=== PATIENT | male | born 2000 | race Caucasian/White ===

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

== ENCOUNTER 2024-05-07 18:47 | Inpatient (IN) | payer OTHER, SELFPAY ==
[2024-05-07 18:56] VITALS: BP 168/134; PULSE 112; RESP 18; TEMP 36.8; O2SAT 99; BMI 31.8
--- NOTE | 2024-05-07 18:58 | ECG_ITS ---
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 Measurements Intervals [place] Rate: 105 P: 78 MD: 146 QRS: 74 QRSD: 99 T: 74 QT: 334 QTc: 443 Interpretive Statements SINUS TACHYCARDIA NONSPECIFIC T-WAVE ABNORMALITY ABNORMAL RHYTHM ECG No previous ECG available for comparison Electronically Signed On 05-08-2024 00:11:49 CDT by Jen Marie M.D. [email or web address]
--- NOTE | 2024-05-07 19:05 | ED.C_ITS ---
HPI - Psych 2 General: Chief Complaint: Psychiatric Symptoms Stated Complaint: MHE Time Seen by Provider: 05/07/24 18:50 Source: patient and police Mode of arrival: ambulatory Limitations: no limitations History of Present Illness: 24-year-old male states he has been havi ng increased depression over the last week states he is having issues in his relationship and states that his family called because he is worried that he may have erratic behavior please states they said he has been having erratic behavior and make threats to harm other people and is concerned he may harm himself as well. Associated symptoms: Reports depression Related Data Home Medications Medication Instructions Recorded Confirmed No Known Home Medications 05/15/20 05/15/20 Allergies Allergy/AdvReac Type Severity Reaction Status Date / Time No Known Allergies Allergy Verified 05/07/24 19:02 Review of Systems 2 Const: Denies: fever(s), chills, body aches or change in appetite ENMT: Denies: throat pain or dental pain Card: Denies: chest pain Resp: Denies: dyspnea GI: Denies: abdominal pain, nausea, vomiting or diarrhea Musc: Denies: neck pain or back pain Skin/Breast: Denies: rash Neuro: Denies: headache(s) Psych: Reports: depression Physical Exam 2 Const: COMMON NORMALS: no acute distress, patient oriented x3 and healthy appearing HENMT: COMMON NORMALS: normocephalic and atraumatic HEAD & SCALP: n ormocephalic and atraumatic Eye: COMMON NORMALS: conjunctivae normal CONJUNCTIVA: Yes conjunctivae normal Neck/C-Spine: COMMON NORMALS: full ROM and supple Chest: COMMONS NORMALS: normal inspection of the chest Resp: COMMON NORMALS: normal respiratory effort Cardio: COMMON NORMALS: regular rate RATE: regular rate Extremity: COMMON NORMALS: normal to inspection and full ROM Neuro: COMMON NORMALS: patient oriented x3, moves all extremities and no focal motor deficits Psych: COMMON NORMALS: mental status grossly normal, Normal thought process present and cooperative MOOD & AFFECT: Yes depressed mood THOUGHT PROCESS: Normal thought process present Skin: COMMON NORMALS: no rashes or lesions noted and no wounds GENERAL SKIN EXAM: no rashes or lesions noted Course 2 Vital Signs: Vital signs: Vital Signs Temperature 98.3 F 05/07/24 18:56 Pulse Rate 112 H 05/07/24 18:56 Respiratory Rate 18 05/07/24 18:56 Blood Pressure 168/134 05/07/24 18:56 Pulse Oximetry 99 05/07/24 18:56 Oxygen Delivery Me thod Room Air 05/07/24 18:56 MDM - Psych Medical Decision Making Patient presents here with depression he is also had some homicidal ideations with some psychosis he is placed on a 96-hour hold medically cleared I spoke to psychiatrist and will admit. Medical Records I reviewed the patient's medical records. Lab Data I reviewed the patient's lab results. 05/07/24 19:26 05/07/24 19:26 Laboratory Results WBC 11.71 10^3/uL (3.29-11.43) H 05/07/24 19: RBC 5.98 10^6/uL (3.85-5.65) H 05/07/24 19: Hgb 15.90 g/dL (11.27-16.99) 05/07/24 19: Hct 48.0 % (37-53) 05/07/24 19: MCV 80.3 fl (82-101) L 05/07/24 19: MCH 26.6 pg (27-33) L 05/07/24 19: MCHC 33.1 g/dL (30-55) 05/07/24 19: RDW 11.9 % (12.1-15.1) L 05/07/24 19: Plt Count 300 10^3/cmm (157-399) 05/07/24 19: MPV 10.8 fL (7.4-10.4) H 05/07/24 19: Neut % (Auto) 75.5 % 05/07/24 19: Lymph % (Auto) 17.3 % 05/07/24 19: [place] % (Auto) 6.4 % 05/07/24 19: Eos % (Auto) 0.2 % 05/07/24 19: Baso % (Auto) 0.3 % 05/07/24 19: Neut # (Auto) 8.85 10^3/uL (1.8-7.7) H 05/07/24 19: Lymph # (Auto) 2.0 10^3/uL (0.8-4.8) 10/27/24 19:26 [place] # (Auto) 0.8 10^3/uL (0.2-0.9) 05/07/24 19:26 Eos # (Auto) 0.0 10^3/uL (0.0-0.8) 05/07/24 19:26 Baso # (Auto) 0.0 10^3/uL (0.0-0.1) 05/07/24 19:26 Nucleated RBC % (auto) 0 % 05/07/24 19:26 Nucleated RBCs # 0.0 /100WBC 05/07/24 19:26 Sodium 136 mmol/L (136-145) 05/07/24 19:26 Potassium 3.4 mmol/L (3.5-5.1) L 05/07/24 19:26 Chloride 100 mmol/L (98-107) 05/07/24 19:26 Carbon Dioxide 23 mmol/L (22-29) 05/07/24 19:26 Anion Gap 16.4 (5-19) 05/07/24 19:26 BUN 12 mg/dL (6-20) 05/07/24 19:26 Creatinine 0.8 mg/dL (0.7-1.2) 05/07/24 19:26 GFR Calculation 119.8 mL/min (90-130) 05/07/24 19:26 Glucose 102 mg/dL (65-115) 05/07/24 19:26 Calculated Osmolality 282 mOsm/kg (285-295) L 05/07/24 19:26 Calcium 9.1 mg/dL (8.5-10.5) 05/07/24 19:26 Total Bilirubin 0.6 mg/dL (0.15-1.2) 05/07/24 19:26 AST 23 U/L (0-40) 05/07/24 19:26 ALT 28 U/L (0-41) 05/07/24 19:26 Alkaline Phosphatase 38 U/L (40-130) L 05/07/24 19:26 Total Protein 7.0 g/dL (6.6-8.7) 05/07/24 19:26 Albumin 4.7 g/dL (3.5-5.2) 05/07/24 19:26 Globulin 2.3 g/dL (1.3-4.6) 05/07/24 19:26 Urine Color Yellow (Yellow) 05/07/24 19:21 Urine Appearance Clear (CLEAR) 05/07/24 19: Urine pH 6.0 (5-7) 05/07/24 19:21 Ur Specific [place] 1.030 (1.005-1.030) 05/07/24 19:21 Urine Protein 1+ (Negative) A 05/07/24 19: Urine Glucose (UA) Negative (Normal) 05/07/24 19:21 Urine Ketones 2+ (Negative) H 05/07/24 19:21 Urine Blood Negative (Negative) 05/07/24 19:21 Urine Nitrate Negative (Negative) 05/07/24 19: Urine Bilirubin Negative (Negative) 05/07/24 19: Urine Urobilinogen 1.0 mg/dL (Negative) 05/07/24 19:21 Ur Leukocyte Esterase Trace (Negative) A 05/07/24 19: Urine RBC 0-4 /hpf (0-2) H 05/07/24 19:21 Urine WBC 10-15 /hpf (0-5) H 05/07/24 19:21 Ur Squamous Epith Cells 5-10 /hpf (0-5) H 05/07/24 19:21 Amorphous Sediment Not Reportable 05/07/24 19:21 Urine Bacteria Trace /hpf (NONE) 05/07/24 19:21 Urine Mucus 3+ /hpf 05/07/24 19:21 Salicylates < 0.3 mg/dL (3-10) L 05/07/24 19:26 Urine Opiates Screen Negative ng/mL (Negative) 05/07/24 19:21 Acetaminophen < 5.0 ug/mL (10-30) L 05/07/24 19:26 Ur Barbiturates Screen Negative ng/mL (Negative) 05/07/24 19:21 Ur Phencyclidine Scrn Negative ng/mL (Negative) 05/07/24 19:21 Ur Amphetamines Screen Negative ng/mL (Negative) 05/07/24 19:21 U Benzodiazepines Scrn Negative ng/mL (Negative) 05/07/24 19:21 Urine Cocaine Screen Negative ng/mL (Negative) 05/07/24 19:21 U Marijuana (THC) Screen Positive ng/mL (Negative) H 05/07/24 19:21 Ethyl Alcohol < 10 mg/dL (0-10) 05/07/24 19:26 Coronavirus (PCR) Negative (Negative) 05/07/24 19:21 Influenza A (PCR) Negative (Negative) 05/07/24 19:21 Influenza Type B (PCR) Negative (Negative) 05/07/24 19:21 RSV (PCR) Negative (Negative) 05/07/24 19:21 No radiology studies performed this visit Discharge Plan Discharge Patient Disposition: Admitted As Inpatient Clinical Impression: Depression, Acute psychosis, Homicidal ideation Condition: Stable Prescriptions: No Action No Known Home Medications Coding Level of Care Code ED Fuel Verification Technician for Nikolai Stuart
[2024-05-07 19:32] LABS: Bilirubin Urine Negative (Negative); Blood Urine Negative (Negative); Glucose Urine UA Negative (Normal); Ketones Urine 2+ (Negative); Leukocyte Esterase Urine Trace (Negative); Nitrate Urine Negative (Negative); Protein Urine 1+ (Negative); Urine Appearance Clear (CLEAR); Urine Color Yellow (Yellow)
[2024-05-07 19:32] LABS: Basophils % 0.3 %; Eosinophils % 0.2 %; Lymphocytes % 17.3 %; Mean Corpuscular HGB Conc 33.1 g/dL (30-55); Mean Corpuscular Hemoglobin 26.6 pg (27-33); Mean Corpuscular Volume 80.3 fl (82-101); Mean Platelet Volume 10.8 fL (7.4-10.4); Monocytes # 0.8 10^3/uL (0.2-0.9); Monocytes % 6.4 %; Neutrophils # 8.85 10^3/uL (1.8-7.7); Neutrophils % 75.5 %; Nucleated Red Blood Cells % 0 %; Platelet Count 300 10^3/cmm (157-399); Red Blood Count 5.98 10^6/uL (3.85-5.65); Red Cell Distribution Width 11.9 % (12.1-15.1); White Blood Count 11.71 10^3/uL (3.29-11.43)
[2024-05-07 19:41] LABS: Amphetamines Screen Urine Negative (Negative); Barbiturates Screen Urine Negative (Negative); Benzodiazepines Screen Urine Negative (Negative); Cocaine Screen Urine Negative (Negative); Opiate Screen Urine Negative (Negative); PCP Screen Urine Negative (Negative); THC Screen Urine Positive (Negative)
[2024-05-07 19:43] LABS: Add Urine Culture? No; Add Urine Microscopic? YES; Bacteria Urine TRACE /hpf; Mucus Urine 3+ /hpf; RBC Urine 0-4 /hpf (0-2)
[2024-05-07 19:52] LABS: Acetaminophen < 5.0 ug/mL (10-30); Alanine Aminotransferase 28 U/L (0-41); Albumin Level 4.7 g/dL (3.5-5.2); Alcohol Level < 10 mg/dL (0-10); Alkaline Phosphatase 38 U/L (40-130); Anion Gap 16.4 (5-19); Aspartate Amino Transferase 23 U/L (0-40); Blood Urea Nitrogen 12 mg/dL (6-20); Calcium 9.1 mg/dL (8.5-10.5); Carbon Dioxide 23 mmol/L (22-29); Chloride 100 mmol/L (98-107); Globulin 2.3 g/dL (1.3-4.6); Glomerular Filtration Rate 119.8 mL/min (90-130); Glucose 102 mg/dL (65-115); Osmolality Calculated 282 mOsm/kg (285-295); Potassium 3.4 mmol/L (3.5-5.1); Salicylate < 0.3 mg/dL (3-10); Sodium 136 mmol/L (136-145); Total Bilirubin 0.6 mg/dL (0.15-1.2)
--- NOTE | 2024-05-07 19:54 | PC.NURSE ---
PER DR. SEALS, CANCEL CLINDAMYCIN ORDER. WRONG PATIENT.
[2024-05-07 20:09] LABS: Covid PCR NEGATIVE (Negative); Influenza A NEGATIVE (Negative); Influenza B NEGATIVE (Negative); Respiratory Syncytial Virus Ce NEGATIVE (Negative)
--- NOTE | 2024-05-07 20:53 | PC.NURSE ---
96 HH Pt served with copy of 96 HH by this RN and security. Pt A&Ox3, pt denies having any questions at this time.
[2024-05-07 21:07] VITALS: BP 166/118
--- NOTE | 2024-05-07 21:45 | PC.NURSE ---
Pt offered ordered meds for BP and anxiety. Pt refuses at this time. Pt sitting on side of bed, shaking leg, but otherwise cooperative. Family at bedside.
[2024-05-07] MEDS: metoprolol tartrate 25 mg Tablet PO (23:48)
[2024-05-07] MEDS: LORazepam 1 mg Tablet PO (23:49)
--- NOTE | 2024-05-08 05:09 | PC.NURSE ---
Rounded on pt. Pt resting quietly. Resp even/unlabored. Skin w/p/d
[2024-05-08 06:23] VITALS: BP 109/58; PULSE 72; O2SAT 98
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
[2024-05-08 14:00] VITALS: BP 110/70; PULSE 90; RESP 18; TEMP 36.3; O2SAT 96
[2024-05-08] MEDS: escitalopram 10 mg Tablet PO (16:45)
[2024-05-08] MEDS: ARIPiprazole 10 mg Tablet 5 MG PO (16:45)
[2024-05-08 20:19] VITALS: BP 126/61; PULSE 66; RESP 15; TEMP 36.8; O2SAT 98
[2024-05-09 06:00] VITALS: BP 115/64; PULSE 90; RESP 16; O2SAT 97
[2024-05-09] MEDS: escitalopram 10 mg Tablet PO (09:18)
[2024-05-09] MEDS: ARIPiprazole 10 mg Tablet 5 MG PO (09:19)
[2024-05-09] MEDS: nicotine 2 mg Gum BUCCAL ×2 (09:19→20:35)
[2024-05-09 14:00] VITALS: BP 137/74; PULSE 87; RESP 18; TEMP 36.9; O2SAT 98
--- NOTE | 2024-05-09 15:30 | PC.NURSE ---
THIS PT MOTHER, WHO IS ON HIS HIPPA LIST, SPOKE WITH THIS NURSE. PT MOTHER STATED THAT SHE IS CONCERNED FOR PT BECAUSE HE IS STILL PARANOID. PT MOTHER STATES THAT HE ENDORSED TO HER DURING THIS VISITATION THAT PEOPLE ARE TRYING TO KILL HIM AND THAT THEY HAD A GROUP CHAT TO TALK ABOUT HIM. PT MOTHER ENDORSES THAT NONE OF THIS IS TRUE AND THAT SHE IS CONCERNED BECAUSE HE IS MANIPULATIVE AND IS TRYING TO BE GOOD TO BE ABLE TO GET OUT OF HERE. PT MOTHER BECAME TEARFUL AND STATED PLEASE HELP HIM GET BETTER. THIS NURSE EDUCATED PT MOTHER ON THE PROCESS AND THAT WE WOULD NOT LET PT OUT UNLESS HE IS NO LONGER DEEMED A THREAT TO HIMSELF OR OTHERS.
--- NOTE | 2024-05-09 15:50 | P.NPUPN_ITS ---
Subjective NPU 2 Subjective: 24-year-old male with a history of unspe cified psychosis admitted with paranoia and some homicidal ideation suicidal ideation.The patient had tolerated the patient had tolerated the Abilify without side effects. He had continued to report that he remained concerned that people were trying to harm his grandparents and stated that he had felt certain that they were trying to sneak over into their place of residence. He had reported that he had missed his family and acknowledged that he was extremely protective of his grandparents. He had reported that he had suspicions that something bad was happening. Patient had been compliant on the milieu and was able to attend groups. He had also acknowledged having continued depression and reported having problems with concentration. He reported no sleep disturbance last night. Mental Status Exam 2 MSE Comments: Patient is a tall white male who had an intense gaze but was pleasant and cooperative on interview. His gait appeared within normal limits. There was no evidence of any abnormal involuntary motor movements, tics, or tremors appreciated. His speech was monotone in quality and normal in rate and volume. His mood was described as depressed. His affect appeared blunted. His thought process was linear logical and goal-directed. His thought content showed some evidence of paranoia and some ideas of reference. There were some delusions of persecution. He had minimized any homicidal or suicidal thoughts. He did not appear to be responding to internal stimuli. He was alert and oriented to person place time and situation. His recent and remote memory were grossly intact. His insight was poor. His judgment was poor. His impulse control appeared limited at this time. Vitals/I&O/Wt Last Vital Signs Temp 98.5 F 05/09/24 14:00 Pulse 87 05/09/24 14:00 Resp 18 05/09/24 14:00 BP 137/74 05/09/24 14:00 Pulse Ox 98 05/09/24 14:00 O2 Del Method Room Air 05/09/24 06:00 Weight last 48 hrs Weight 115.666 kg Data NPU 05/07/24 19:26 05/07/24 19:26 A&P Assessment and plan (1) MDD (major depressive disorder), recurrent, severe, with psychosis: (2) Depression: (3) Unspecified psychosis: Plan 24-year-old male currently on medications to target depression and anxiety admitted with allegedly homicidal ideation and increased paranoia. The patient does appear to be psychotic this time and was willing to receive help on an inpatient unit. He does appear to have genetic loading for bipolar disorder and has endorsed some manic symptoms in the past. #1.? Engage patient in individual milieu and group therapy. #2?? Recommend sober living treatment at the highest level of care to which the patient is willing to commit #3??? Hold Strattera, continue lexapro 10mg daily and increase abilfy to 10mg daily. #4?? TO-15 minute checks? #5?? Will attempt to gather collateral information Involuntary Hold Information 2 96 Hour Hold: 96 Hour Involuntary Admission: Yes 96 Hour Hold Ending Date: 05/12/24 96 Hour Hold Ending Time: 00:01 Other Hold: Hold End Date: 05/11/24 Attestations NPU 2 Medical Necessity Statement*: Inpatient hospitalization is medically necessary and deemed to ?be ?the clinically appropriate intervention ?at this time.? We will monitor/initiate medications and make changes as indicated.?? The patient?s likely length of stay is 7-10 days. Coding Level of Care Code Acute Code for g Fwd Diagnoses MDD (major depressive disorder), recurrent, severe, with psychosis F33.3 Depression F32.A Unspecified psychosis F29
[2024-05-09 19:45] VITALS: BP 166/91; PULSE 95; RESP 15; TEMP 36.6; O2SAT 99
[2024-05-09] MEDS: hyDROXYzine 25 mg Capsule 50 MG PO (20:35)
[2024-05-09] MEDS: trazodone 50 mg Tablet PO (20:35)
[2024-05-10 06:00] VITALS: BP 117/68; PULSE 84; RESP 16; TEMP 36.6; O2SAT 99
[2024-05-10] MEDS: ARIPiprazole 10 mg Tablet PO (10:45)
[2024-05-10] MEDS: nicotine 2 mg Gum BUCCAL ×2 (13:12→21:12)
[2024-05-10 14:00] VITALS: BP 151/96; PULSE 75; RESP 16; TEMP 36.7; O2SAT 97
--- NOTE | 2024-05-10 18:26 | P.NPUPN_ITS ---
Subjective NPU 2 Subjective: 24-year-old male with a history of unspe cified psychosis admitted with paranoia and some homicidal ideation suicidal ideation. The patient had reported that he felt less paranoid. He had minimized any depression. He had stated that he was missing being at home. The patient had been able to attend groups but continued to appear somewhat isolative. He had reported that he continued to have some worries about something happening to his grandparents but stated that he was less preoccupied with those thoughts. He had continued to report having been extremely stressed by his previous marriages he had stated that the woman had caused him great financial stress. Mental Status Exam 2 MSE Comments: Patient is a tall white male who had an intense gaze but was pleasant and cooperative on interview. His gait appeared within normal limits. There was no evidence of any abnormal involuntary motor movements, tics, or tremors appreciated. His speech was monotone in quality and normal in rate and volume. His mood was described as a little better. His affect remained blunted. His thought process was linear, logical, and goal-directed. His thought content showed continued evidence of paranoia and some no ideas of reference today. He had minimized any homicidal or suicidal thoughts. He did not appear to be responding to internal stimuli. He was alert and oriented to person, place, time, and situation. His recent and remote memory were grossly intact. His insight was improving. His judgment was poor. His impulse control appeared limited at this time. Vitals/I&O/Wt Last Vital Signs Temp 97.8 F 05/10/24 06:00 Pulse 84 05/10/24 06:00 Resp 16 05/10/24 06:00 BP 117/68 05/10/24 06:00 Pulse Ox 99 05/10/24 06:00 O2 Del Method Room Air 05/10/24 06:00 Data NPU 05/07/24 19:26 05/07/24 19:26 A&P Assessment and plan (1) MDD (major depressive disorder), recurrent, severe, with psychosis: (2) Depression: (3) Unspecified psychosis: Plan 24-year-old male currently on medications to target depression and anxiety admitted with allegedly homicidal ideation and increased paranoia. The patient does appear to be psychotic this time and was willing to receive help on an inpatient unit. He does appear to have genetic loading for bipolar disorder and has endorsed some manic symptoms in the past. #1.? Engage patient in individual milieu and group therapy. #2?? Recommend sober living treatment at the highest level of care to which the patient is willing to commit #3??? , increase lexapro 15mg daily and increase abilfy to 15mg daily. #4?? TO-15 minute checks? #5?? Will attempt to gather collateral information Involuntary Hold Information 2 96 Hour Hold: 96 Hour Involuntary Admission: Yes 96 Hour Hold Ending Date: 05/12/24 96 Hour Hold Ending Time: 00:01 Other Hold: Hold End Date: 05/11/24 Attestations NPU 2 Medical Necessity Statement*: Inpatient hospitalization is medically necessary and deemed to ?be ?the clinically appropriate intervention ?at this time.? We will monitor/initiate medications and make changes as indicated.?? The patient?s likely length of stay is 7-10 days. Coding Level of Care Code Acute Code for [facility] Fwd Diagnoses MDD (major depressive disorder), recurrent, severe, with psychosis F33.3 Depression F32.A Unspecified psychosis F29
[2024-05-10 20:11] VITALS: BP 134/78; PULSE 84; RESP 15; TEMP 36.5; O2SAT 99
[2024-05-10] MEDS: escitalopram 10 mg Tablet 15 MG PO (21:12)
[2024-05-10] MEDS: trazodone 50 mg Tablet PO (21:13)
[2024-05-10] MEDS: hyDROXYzine 25 mg Capsule 50 MG PO (21:13)
[2024-05-11 06:00] VITALS: BP 121/74; PULSE 81; RESP 18; TEMP 36.6; O2SAT 97
[2024-05-11] MEDS: nicotine 2 mg Gum BUCCAL ×2 (07:41→10:48)
[2024-05-11] MEDS: ARIPiprazole 10 mg Tablet PO (07:41)
[2024-05-11 14:00] VITALS: BP 152/99; PULSE 87; RESP 16; TEMP 36.6; O2SAT 99
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
[2024-05-11 16:44] VITALS: BP 121/74; PULSE 84; RESP 18; TEMP 36.6; O2SAT 97
== END 2024-05-11 16:57 | disposition home or self-care (01) | DRG 885 ==
LOC: ER 20:49 → ER IP 05-08 07:11 → NP 05-08 10:00
PROVIDERS: Admitting Provider Psychiatry & Neurology Psychiatry; Emergency Provider Emergency Medicine; PCP Nurse Practitioner Family; Visit Provider Psychiatry & Neurology Psychiatry
DX: F33.3 Major depressive disorder, recurrent, severe with psychotic symptoms (principal); R45.851 Suicidal ideations; F17.290 Nicotine dependence, other tobacco product, uncomplicated; R45.850 Homicidal ideations; Z81.8 Family history of other mental and behavioral disorders
CPT/HCPCS: 0241U; 36415; 80053; 80306; 80307; 81001; 85025; 93005; 97150; 97165; 99285

== ENCOUNTER 2024-05-13 04:28 | Emergency (ER) | payer OTHER, SELFPAY ==
[2024-05-13 04:31] VITALS: BP 167/104; PULSE 96; RESP 16; TEMP 36.7; O2SAT 100; BMI 31.2
--- NOTE | 2024-05-13 05:05 | ECG_ITS ---
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 Measurements Intervals [place] Rate: 87 P: 55 DE: 168 QRS: 33 QRSD: 93 T: 58 QT: 350 QTc: 423 Interpretive Statements SINUS RHYTHM NONSPECIFIC T-WAVE ABNORMALITY Compared to ECG 05/07/2024 19:46:13 Sinus tachycardia no longer present T-wave abnormality still present Electronically Signed On 05-13-2024 13:39:04 CDT by Temo Lucero M.D. [email or web address]
[2024-05-13 05:14] LABS: Basophils % 0.4 %; Eosinophils % 0.2 %; Hematocrit 48.5 % (37-53); Lymphocytes # 1.8 10^3/uL (0.8-4.8); Lymphocytes % 17.7 %; Mean Corpuscular Hemoglobin 26.5 pg (27-33); Mean Corpuscular Volume 80.4 fl (82-101); Mean Platelet Volume 11.1 fL (7.4-10.4); Monocytes # 0.7 10^3/uL (0.2-0.9); Neutrophils # 7.58 10^3/uL (1.8-7.7); Neutrophils % 74.2 %; Nucleated Red Blood Cells % 0 %; Platelet Count 316 10^3/cmm (157-399); Red Blood Count 6.03 10^6/uL (3.85-5.65); Red Cell Distribution Width 11.9 % (12.1-15.1); White Blood Count 10.22 10^3/uL (3.29-11.43)
--- NOTE | 2024-05-13 05:45 | W.ED.PSYCHS ---
HPI - Psych General: Chief Complaint: Psychiatric Symptoms Stated Complaint: SI Time Seen by Provider: 05/13/24 05:05 History of Present Illness: 24-year-old male patient with a history of mental illness. He was hospitalized recently, discharged 2 days ago from our neuropsychiatric unit. Ambulance was called earlier this morning, and the patient and stated that he was having thoughts of harming himself, killing himself. He did not have a specific plan at that point. He also believes that family members are here in the emergency department making fun of him. He says he can hear their voices. He denies recent illness otherwise medically. He denies drug use. Related Data Home Medications Medication Instructions Recorded Confirmed aripiprazole 10 mg tablet 15 mg PO DAILY 05/13/24 05/13/24 atomoxetine 40 mg capsule 40 mg PO DAILY 05/13/24 05/13/24 Previous Rx's Medication Instructions Recorded escitalopram oxalate 20 mg tablet 20 mg PO DAILY 30 days #30 tabs 05/11/24 Allergies Allergy/AdvReac Type Severity Reaction Status Date / Time No Known Allergies Allergy Verified 05/07/24 19:02 Physical Exam Const: COMMON NORMALS: no acute distress GENERAL APPEARANCE: cooperative; not ill appearing and not frail appearing HENMT: COMMON NORMALS: normocephalic, atraumatic and Normal external nose present HEAD & SCALP: normocephalic and atraumatic FACE & SINUS: normal facial exam and face symmetric NOSE: Normal external nose present Eye: COMMON NORMALS: Equal, round and reactive pupils present and EOMs intact bilaterally PUPIL: Yes Equal, round and reactive pupils present Neck/C-Spine: GENERAL: Yes trachea midline Chest: CHEST: Yes Symmetrical chest wall rise Resp: COMMON NORMALS: normal respiratory effort, No retractions, No use of accessory muscles and clear to auscultation bilaterally AUSCULTATION: clear to auscultation bilaterally Cardio: COMMON NORMALS: regular rate and regular rhythm RATE: regular rate RHYTHM: regular rhythm GI: COMMON NORMALS: Normal to inspection, nondistended, normoactive bowel sounds present Extremity: COMMON NORMALS: no pedal edema Neuro: DYLAN COMA SCALE: document GCS findings [place] coma scale eye opening: Spontaneous [place] coma scale verbal response: Orientated [place] coma scale motor response: Obey commands Dylan coma scale total score: 15 SENSORY EXAM: Yes extremities (intact) Psych: COMMON NORMALS: cooperative APPEARANCE: Yes grossly normal ATTITUDE: Yes Withdrawn affect present ACTIVITY/MOTOR BEHAVIOR: Yes psychomotor slowing and Yes Avoids eye contact (attititude/behavior) SPEECH: Yes minimal MOOD & AFFECT: Yes depressed mood and Yes Flat affect present THOUGHT PROCESS: disorganized THOUGHT CONTENT: Yes Hallucination(s) present ATTENTION/CONCENTRATION: Yes attention grossly impaired and Yes concentration grossly impaired MEMORY/COGNITION: Yes memory grossly intact and Yes cognition grossly intact INSIGHT: Limited insight present (Psych) and Poor insight present (Psych) JUDGEMENT: Limited judgement present (Psych) Skin: COMMON NORMALS: no rashes or lesions noted GENERAL SKIN EXAM: no rashes or lesions noted Course Vital Signs: Vital signs: Vital Signs Temperature 98.0 F 05/13/24 04:31 Pulse Rate 88 05/13/24 13:18 Respiratory Rate 18 05/13/24 10:17 Blood Pressure 145/83 05/13/24 13:18 Pulse Oximetry 98 05/13/24 13:18 Oxygen Delivery Me thod Room Air 05/13/24 10:17 MDM - Psych Medical Decision Making Patient exhibits signs of paranoia. He is hearing voices. He admitted to having thoughts of wanting to kill himself. He has family that works at our facility, and this will make it hard for him to get appropriate treatment here. We will look at transferring this patient to the neuropsychiatric facility. Given his suicidal ideations, he affidavits for 96-hour hold were completed. Medically, he is stable. Lab Data 05/13/24 05:08 05/13/24 05:08 Laboratory Results WBC 10.22 10^3/uL (3.29-11.43) 05/13/24 05:08 RBC 6.03 10^6/uL (3.85-5.65) H 05/13/24 05:08 Hgb 16.00 g/dL (11.27-16.99) 05/13/24 05:08 Hct 48.5 % (37-53) 05/13/24 05:08 MCV 80.4 fl (82-101) L 05/13/24 05:08 MCH 26.5 pg (27-33) L 05/13/24 05:08 MCHC 33.0 g/dL (30-55) 05/13/24 05:08 RDW 11.9 % (12.1-15.1) L 05/13/24 05:08 Plt Count 316 10^3/cmm (157-399) 05/13/24 05:08 MPV 11.1 fL (7.4-10.4) H 05/13/24 05:08 Neut % (Auto) 74.2 % 05/13/24 05:08 Lymph % (Auto) 17.7 % 05/13/24 05:08 [place] % (Auto) 7.0 % 05/13/24 05:08 Eos % (Auto) 0.2 % 05/13/24 05:08 Baso % (Auto) 0.4 % 05/13/24 05:08 Neut # (Auto) 7.58 10^3/uL (1.8-7.7) 05/13/24 05:08 Lymph # (Auto) 1.8 10^3/uL (0.8-4.8) 05/13/24 05:08 [place] # (Auto) 0.7 10^3/uL (0.2-0.9) 05/13/24 05:08 Eos # (Auto) 0.0 10^3/uL (0.0-0.8) 05/13/24 05:08 Baso # (Auto) 0.0 10^3/uL (0.0-0.1) 05/13/24 05:08 Nucleated RBC % (auto) 0 % 05/13/24 05:08 Nucleated RBCs # 0.0 /100WBC 05/13/24 05:08 Sodium 139 mmol/L (136-145) 05/13/24 05:08 Potassium 3.7 mmol/L (3.5-5.1) 05/13/24 05:08 Chloride 102 mmol/L (98-107) 05/13/24 05:08 Carbon Dioxide 25 mmol/L (22-29) 05/13/24 05:08 Anion Gap 15.7 (5-19) 05/13/24 05:08 BUN 9 mg/dL (6-20) 05/13/24 05:08 Creatinine 0.8 mg/dL (0.7-1.2) 05/13/24 05:08 GFR Calculation 119.8 mL/min (90-130) 05/13/24 05:08 Glucose 119 mg/dL (65-115) H 05/13/24 05:08 Calculated Osmolality 288 mOsm/kg (285-295) 05/13/24 05:08 Calcium 9.6 mg/dL (8.5-10.5) 05/13/24 05:08 Total Bilirubin 0.5 mg/dL (0.15-1.2) 05/13/24 05:08 AST 16 U/L (0-40) 05/13/24 05:08 ALT 22 U/L (0-41) 05/13/24 05:08 Alkaline Phosphatase 38 U/L (40-130) L 05/13/24 05:08 Total Protein 7.2 g/dL (6.6-8.7) 05/13/24 05:08 Albumin 4.8 g/dL (3.5-5.2) 05/13/24 05:08 Globulin 2.4 g/dL (1.3-4.6) 05/13/24 05:08 TSH 2.30 uIU/mL (0.27-4.20) 05/13/24 05:08 Urine Color Dark yellow (Yellow) A 05/13/24 08:23 Urine Appearance Turbid (CLEAR) A 05/13/24 08:23 Urine pH 6.5 (5-7) 05/13/24 08:23 Ur Specific [place] 1.030 (1.005-1.030) 05/13/24 08:23 Urine Protein 1+ (Negative) A 05/13/24 08:23 Urine Glucose (UA) Negative (Normal) 05/13/24 08:23 Urine Ketones Negative (Negative) 05/13/24 08:23 Urine Blood Negative (Negative) 05/13/24 08:23 Urine Nitrate Negative (Negative) 05/13/24 08:23 Urine Bilirubin Negative (Negative) 05/13/24 08:23 Urine Urobilinogen 1.0 mg/dL (Negative) 05/13/24 08:23 Ur Leukocyte Esterase 1+ (Negative) A 05/13/24 08:23 Urine RBC 0-4 /hpf (0-2) H 05/13/24 08:23 Urine WBC 5-10 /hpf (0-5) H 05/13/24 08:23 Ur Squamous Epith Cells 0-4 /hpf (0-5) H 05/13/24 08:23 Amorphous Sediment Trace /hpf 05/13/24 08:23 Urine Bacteria 1+ /hpf (NONE) H 05/13/24 08:23 Hyaline Casts 5-10 /lpf H 05/13/24 08:23 Coarse Granular Casts 0-4 /lpf H 05/13/24 08:23 Urine Mucus 2+ /hpf 05/13/24 08:23 Salicylates < 0.3 mg/dL (3-10) L 05/13/24 05:08 Urine Opiates Screen Negative ng/mL (Negative) 05/13/24 08:23 Acetaminophen < 5.0 ug/mL (10-30) L 05/13/24 05:08 Ur Barbiturates Screen Negative ng/mL (Negative) 05/13/24 08:23 Ur Phencyclidine Scrn Negative ng/mL (Negative) 05/13/24 08:23 Ur Amphetamines Screen Negative ng/mL (Negative) 05/13/24 08:23 U Benzodiazepines Scrn Negative ng/mL (Negative) 05/13/24 08:23 Urine Cocaine Screen Negative ng/mL (Negative) 05/13/24 08:23 U Marijuana (THC) Screen Positive ng/mL (Negative) H 05/13/24 08:23 Ethyl Alcohol < 10 mg/dL (0-10) 05/13/24 05:08 Coronavirus (PCR) Negative (Negative) 05/13/24 05:08 Influenza A (PCR) Negative (Negative) 05/13/24 05:08 Influenza Type B (PCR) Negative (Negative) 05/13/24 05:08 RSV (PCR) Negative (Negative) 05/13/24 05:08 No radiology studies performed this visit Discharge Plan Discharge Patient Disposition: Xfer Psychiatric Hosp Clinical Impression: Acute psychosis, Suicidal ideation Condition: Stable Referrals: Nancy Shi FNP [Primary Care Provider] - Coding Level of Care Code ED Laboratory Technical Specialist for [facility]
[2024-05-13 05:52] LABS: Acetaminophen < 5.0 ug/mL (10-30); Alanine Aminotransferase 22 U/L (0-41); Albumin Level 4.8 g/dL (3.5-5.2); Alcohol Level < 10 mg/dL (0-10); Alkaline Phosphatase 38 U/L (40-130); Anion Gap 15.7 (5-19); Aspartate Amino Transferase 16 U/L (0-40); Blood Urea Nitrogen 9 mg/dL (6-20); Calcium 9.6 mg/dL (8.5-10.5); Carbon Dioxide 25 mmol/L (22-29); Chloride 102 mmol/L (98-107); Creatinine Clr Calc Pharmacy 195.1203; Globulin 2.4 g/dL (1.3-4.6); Glomerular Filtration Rate 119.8 mL/min (90-130); Glucose 119 mg/dL (65-115); Osmolality Calculated 288 mOsm/kg (285-295); Potassium 3.7 mmol/L (3.5-5.1); Salicylate < 0.3 mg/dL (3-10); Sodium 139 mmol/L (136-145); Total Bilirubin 0.5 mg/dL (0.15-1.2); Total Protein 7.2 g/dL (6.6-8.7)
--- NOTE | 2024-05-13 06:19 | PC.NURSE ---
96 Hour Involuntary Hold Patient Rights have been reviewed with the patient and a copy of the same has been provided to him. Airframe [employer] Power Plant Mechanic Kimberlee Schmid was present at bedside during the time of presentation of Rights.
--- NOTE | 2024-05-13 07:18 | PC.PHAR ---
Pt unable to verify medications at this time. Med rec completed using med list from pharmacy with last fill dates and days supply
[2024-05-13 07:20] VITALS: RESP 18; O2SAT 99
[2024-05-13 07:55] LABS: Covid PCR NEGATIVE (Negative); Influenza A NEGATIVE (Negative); Influenza B NEGATIVE (Negative); Respiratory Syncytial Virus Ce NEGATIVE (Negative)
[2024-05-13 08:34] LABS: Bilirubin Urine Negative (Negative); Blood Urine Negative (Negative); Glucose Urine UA Negative (Normal); Ketones Urine Negative (Negative); Leukocyte Esterase Urine 1+ (Negative); Nitrate Urine Negative (Negative); Protein Urine 1+ (Negative); Urine Appearance Turbid (CLEAR); Urine Color Dark Yellow (Yellow); pH Urine 6.5 (5-7)
[2024-05-13 08:37] LABS: Amphetamines Screen Urine Negative (Negative); Barbiturates Screen Urine Negative (Negative); Benzodiazepines Screen Urine Negative (Negative); Cocaine Screen Urine Negative (Negative); Opiate Screen Urine Negative (Negative); PCP Screen Urine Negative (Negative); THC Screen Urine Positive (Negative)
[2024-05-13 08:42] LABS: Add Urine Microscopic? YES; Bacteria Urine 1+ /hpf; RBC Urine 0-4 /hpf (0-2); Squamous Epithelial Cell Urine 0-4 /hpf (0-5); UA Manual Slide Review YES
[2024-05-13 08:43] LABS: Add Urine Culture? Yes; Amorphous Sediment Urine TRACE /hpf; Coarse Granular Casts Urine 0-4 /lpf; Mucus Urine 2+ /hpf
[2024-05-13 10:17] VITALS: BP 142/87; PULSE 76; RESP 18; O2SAT 96
[2024-05-13 13:18] VITALS: BP 145/83; PULSE 88; O2SAT 98
== END 2024-05-13 13:19 ==
PROVIDERS: Emergency Provider Emergency Medicine; PCP Nurse Practitioner Family
DX: F23 Brief psychotic disorder (principal); R45.851 Suicidal ideations; Z11.52 Encounter for screening for COVID-19
CPT/HCPCS: 0241U; 80053; 80306; 80307; 81001; 84443; 85025; 87086; 93005; 99285

== ENCOUNTER 2024-07-11 09:53 | Outpatient (CLI) | payer OTHER, SELFPAY ==
[2024-07-11 10:51] LABS: Lithium 0.4 mmol/L (0.6-1.2)
== END 2024-07-11 09:54 | disposition home or self-care (01) ==
PROVIDERS: PCP Nurse Practitioner Family; Visit Provider Psychiatry & Neurology Psychiatry
DX: Z01.89 Encounter for other specified special examinations (principal)
CPT/HCPCS: 80178

== ENCOUNTER → 2024-09-18 10:27 | Outpatient (BNVA) | payer OTHER, SELFPAY | PROVIDERS: PCP Nurse Practitioner Family; Visit Provider Nurse Practitioner Psychiatric/Mental Health | DX: Z79.899 Other long term (current) drug therapy (principal) | CPT/HCPCS: 80053; 80061; 80164; 83036 ==

== ENCOUNTER 2025-07-04 16:30 | Emergency (ER) | payer OTHER, SELFPAY ==
[2025-07-04 16:35] VITALS: BP 125/99; PULSE 112; TEMP 36.7; O2SAT 95; BMI 32.5
--- NOTE | 2025-07-04 17:08 | ED.C_ITS ---
HPI - Psych General: Chief Complaint: Psychiatric Symptoms Stated Complaint: Can't sleep MHE wants to talk about MEDs Time Seen by Provider: 07/04/25 16:53 History of Present Illness: 25-year-old man with history of depressi on, anxiety and substance abuse who presents to the emergency room with trouble sleeping he says he has been struggling with some substance abuse recently. He has been feeling manic. He has not been able to sleep. He says he just wants something to go home and sleep today.. Denies any suicidal or homicidal ideation. Related Data Previous Rx's ?Medication ?Instructions ?Recorded benztropine 0.5 mg tablet 0.5 mg PO BID PRN EPS #60 ta bs 07/28/24 prednisone 20 mg tablet 40 mg (2 x 20 mg) PO DAILY 5 days 11/18/24 #10 tabs quetiapine 50 mg tablet (Seroquel) 50 mg PO BEDTIME #9 0 tabs 01/08/25 venlafaxine 37.5 mg 37.5 mg PO .morning #90 caps 01/08/25 capsule,extended release 24 hr (Effexor XR) Allergies Allergy/AdvReac Type Severity Reaction Status Date / Time prazosin Allergy Mild hives Verified 07/04/25 16:45 Review of Systems Narrative: Constitutional symptoms: Negative except as documented in HPI. Skin symptoms: Negative except as documented in HPI. Eye symptoms: Negative except as documented in HPI. ENMT symptoms: Negative except as documented in HPI. Respiratory symptoms: Negative except as documented in HPI. Cardiovascular symptoms: Negative except as documented in HPI. Gastrointestinal symptoms: Negative except as documented in HPI. Genitourinary symptoms: Negative except as documented in HPI. Musculoskeletal symptoms: Negative except as documented in HPI. Neurologic symptoms: Negative except as documented in HPI. Psychiatric symptoms: Negative except as documented in HPI. Endocrine symptoms: Negative except as documented in HPI. PFSH ED 2 PFSH: Medical History (Updated 07/04/25 @ 17:06 by Natalie Gonzales MD) Obesity (BMI 30.0-34.9) Hyperlipidemia Bipolar I disorder, moderate, current or most recent episode depressed, with psychotic features Nicotine dependence due to vaping tobacco product Severe cannabis dependence in early remission last use May 2024 Generalized anxiety disorder Psychiatric care Social History (Reviewed 11/01/24 @ 10:10 by HETAL Harrison Smoking and tobacco/nicotine status: current every day tobacco/nicotine user Physical Exam Narrative: EXAM NARRATIVE: General: Alert, no acute distress. Skin: warm and dry Head: Normocephalic Neck: Trachea midline Eye: Extraocular movements are intact. Ears, nose, mouth and throat: Oral mucosa moist Respiratory: Respirations are non-labored Musculoskeletal: Normal ROM Gastrointestinal: Abdomen does not appear distended Neurological: Alert and oriented, No focal neurological deficit observed. Psychiatric: Cooperative, appropriate mood & affect. A bit of a pressured affect. Denies suicidal and homicidal ideation Course Vital Signs: Vital signs: Vital Signs Temperature 98.0 F 07/04/25 16:35 Pulse Rate 112 H 07/04/25 16:35 Blood Pressure 125/99 07/04/25 16:35 Pulse Oximetry 95 07/04/25 16:35 Oxygen Delivery Me thod Room Air 07/04/25 16:35 MDM - Psych Medical Decision Making Medical decision making Patient's reason for coming to the emergency room: Insomnia, anxiety Social determinants: Patient is employed I reviewed the patient's medical record. Patient has followed here in the past with Dr. Duran. He also has been admitted for psychosis back in April 2024 I reviewed the patient's current home meds No chronic medications are listed Alternate historians: None Differential diagnosis: including but not limited to and based on the above HPI, review of systems and physical exam: Patient is having anxiety and insomnia. This may been triggered by some substance abuse. Requesting single dose medication for home. I do not find this unreasonable. He has no suicidal or homicidal ideations. He is accompanied by his mother. Assessment and plan: Insomnia Anxiety ? SOMMER Chua in the emergency room. - Discharged home - Discussed plan with patient. Answered any questions. - Evaluation and treatment of this problem were appropriate in the emergency setting. No radiology studies performed this visit Discharge Plan Discharge Patient Disposition: Home Clinical Impression: Generalized anxiety disorder, Insomnia, Substance abuse Condition: Stable Prescriptions: No Action prednisone 20 mg tablet 40 mg PO DAILY 5 Days Qty: 10 0RF quetiapine [Seroquel] 50 mg tablet 50 mg PO BEDTIME Qty: 90 2RF Rx Instructions: Take one tablet at bedtime venlafaxine [Effexor XR] 37.5 mg capsule,extended release 24hr 37.5 mg PO .morning Qty: 90 2RF Rx Instructions: Take one capsule every morning benztropine 0.5 mg tablet 0.5 mg PO BID PRN (Reason: EPS) Qty: 60 3RF Rx Instructions: May take one tablet twice per day as needed for EPS Discharge Orders: Discharge ED (Routine); Ordered 07/04/25 Ordered By: Natalie Gonzales Referrals: Hayden Walls MD [Primary Care Provider, Family Practice] Discharge Diet: Usual diet Discharge Activity: Increase activity as tolerated Patient Instructions: Anxiety (ED), Opioid Safety, Pain Management, Patient Portal & Az Instructions Activity Restrictions/Additional Instructions: Please follow-up with the [facility] crisis center tomorrow or the next day. Phone number is [phone]. There is a 24-hour crisis hotline with the number of 720. Hours of operation are 8 AM to 6 PM. If you develop any suicidal or homicidal thoughts please seek medical attention immediately. Thank you for choosing [facility] for your healthcare needs today. Please realize this is an emergency room and that we are providing you with a medical screening exam and this may not be complete and all inclusive of all the testing and or work up that you may need to determine your ailment or severity of your illness. You have been screened and evaluated and felt safe for discharge. Health conditions do change or evolve sometimes and as such it is important that you follow up with your Primary Doctor to be re checked, 3-5 days is a general good time frame for follow up. You are always welcome to return to the ED for re assessment if your symptoms are worsening or you have new concerns (Please note that included in your discharge packet is information concerning opioid safety and pain management. This information is given to all patients who are discharged from the ER regardless of their discharge diagnosis or the medicines they usually take or are prescribed.) Print Language: Amharic Coding Level of Care Code ED Plating Foreman for Nikolai Stuart
[2025-07-04] MEDS: LORazepam 2 mg/mL INJ 1 mL IM (17:26)
[2025-07-04] MEDS: water for injection-sterile 10 ML 999 ML (17:26)
== END 2025-07-04 17:47 | disposition home or self-care (01) ==
PROVIDERS: Emergency Provider Emergency Medicine; PCP Family Medicine
DX: F41.1 Generalized anxiety disorder (principal); G47.00 Insomnia, unspecified; F19.10 Other psychoactive substance abuse, uncomplicated; Z72.0 Tobacco use; E78.5 Hyperlipidemia, unspecified
CPT/HCPCS: 96372; 99284; J2060; J3486

== ENCOUNTER 2025-07-07 18:56 | Emergency (ER) | payer OTHER, MEDICAID, SELFPAY ==
[2025-07-07 18:59] VITALS: BP 187/109; PULSE 110; RESP 16; TEMP 36.8; O2SAT 97; BMI 37.8
--- OUTSIDE RECORDS SUMMARY | 2025-07-07 18:59 | XMS_ITS | Data Portability ---
Author Organization BRIA Mondragon [facility] Manpreet Campbell [facility] Address [address] [place] [address] Assessment Encounter Date Assessment Date Assessment LastModified by Organization Details LastModified Time 08/27/2023 08/27/2023 Patient here today to establish care. 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 He got out a relationship about a year ago but is still struggling with motivation. Not available 08/27/2023 10:27:28 09/23/2023 09/23/2023 Overall patient reports he is doing better. He is definitely sleeping better. Weight is essentially unchanged from previous. Will set up a follow-up in 3 months to recheck weight and make sure medication is still helping/needed. Not available 09/23/2023 11:13:34 12/28/2023 12/28/2023 Patient feels like he can't concentrate on things at work. He also feels like his antidepressant isn't helping much at this time. 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 He is not sleeping very well at this time. Not available 12/28/2023 11:04:17 06/27/2024 06/27/2024 Patient her for a check-up today. He was recently in a [facility] near [facility] and thought he was supposed to have a follow-up with Christian in [place] but when they went for the appointment there was nothing scheduled. He is feeling much better and would like to get off of the medications he was prescribed. He attributes a lot of his troubles to a bad relationship and lack of sleep. Discussed with he and his grandmother if he feels better because of the medications or if it is due to a change in his situation. He feels like it is because his situation has improved. I explained I would like to have him followed with a psychiatrist and he is in agreement but has not be able to get an appt with anyone until September. Not available 06/27/2024 12:21:22 Plan of Treatment Reminders Order Date Submit Date Provider Last Modified By Organization Details Last Modified Time Details Appointments None recorded. Lab CMP, serum or plasma 2023 [facility], [address] [address], [place], [address], 4 11:26:41 CBC 2023 024 [facility], [address] [address], [place], [address], 4 11:02:06 TSH, serum or plasma 2023 024 [facility] ([facility]), [address] [place], [address], 4 11:18:54 Referral psychiatris t referral 2023 024 [email or web address] 8 Not available 11:50:12 counseling referral 2023 024 [email or web address] Not available 12:17:37 Procedures None recorded. Surgeries None recorded. Imaging None recorded. Medication Orders Abilify Maintena 300 mg intramuscul ar suspension, extended release 2023 024 [email or web address] 9 Not available 14:39:46 Strattera 40 mg capsule 2023 024 [email or web address] 9 [id number], [address], [place], [place], [id number], 4 11:30:03 escitalopra m 10 mg tablet 2023 024 [email or web address] 9 [facility][id number], [address], [place], [place], [id number], 4 11:29:47 sertraline 50 mg tablet 2023 024 [facility]14, [address], [place], [place], [id number], 4 10:59:21 sertraline 50 mg tablet 2023 024 [facility], [address] [place], [address], 10:59:21 Patient TargetsNo targets recorded. Patient Instructions Encounter Date Encounter Id Patient Instructions Last Modified By Organization Details Last Modified Time 08/27/2023 [id number] Call or return for questions or concerns. Not available 08/27/2023 10:27:42 09/23/2023 [id number] Call or return for questions or concerns. Not available 09/23/2023 11:12:38 12/28/2023 [id number] Call or return for questions or concerns. Not available 12/28/2023 11:02:03 06/27/2024 [id number] Call or return for questions or concerns. Not available 06/27/2024 12:19:44 Reason for Referral Psychiatrist Referral for Pa ranoid disorder Referring Physician: Nancy Maya, Family Medicine, Encounter Date: 06/27/2024 Counseling Referral for Para noid disorder Referring Physician: Nancy Maya, Family Medicine, Encounter Date: 06/27/2024 Results Created Date Observation Date Name Description Value Unit Range Abnormal Flag Note LastModifiedBy Organization Detail LastModifiedTime 08/27/19 24 08/27/2023 CBC WBC 5.5 x10 4.5-10 .5 Not Available [facility] [address], [place], [address], 08/27/2023 11:02:06 08/27/19 24 08/27/2023 CBC RBC 5.89 x10 4.30-5 .90 Not Available [facility] [address] [facility] [address], [place], [address], 08/27/2023 11:02:06 08/27/19 24 08/27/2023 CBC HGB 16.3 g/dL 13.5-1 8.0 Not Available [facility] [address] [facility] [address], [place], [address], 08/27/2023 11:02:06 08/27/19 24 08/27/2023 CBC HCT 48.1 % 35.0-6 0.0 Not Available [facility] [address] [facility] [address] [facility] [address], [place], [address], 08/27/2023 11:02:06 08/27/19 24 08/27/2023 CBC MCV 81.6 fL 80.0-9 9.9 Not Available [facility] [address] [facility] [address] [facility] [address], [place], [address], 08/27/2023 11:02:06 08/27/19 24 08/27/2023 CBC MCH 27.6 pg 27.0-3 2.0 Not Available [facility] [address] [facility] [address] [facility] [address], [place], [address], 08/27/2023 11:02:06 08/27/19 24 08/27/2023 CBC MCHC 33.8 g/dL 32.0-3 6.0 Not Available [facility] [address] [facility] [address], [place], [address], 08/27/2023 11:02:06 08/27/19 24 08/27/2023 CBC RDW 14.6 % 11.5-1 4.5 high Not Available [facility] [address] [facility] [address], [place], [address], 08/27/2023 11:02:06 08/27/19 24 08/27/2023 CBC plt 236.8 x10 150.0- 451.0 Not Available [facility] [address] [facility] [address], [place], [address], 08/27/2023 11:02:06 08/27/19 24 08/27/2023 CBC lymphocytes % 26.5 % 20.0-5 0.0 Not Available [facility] [address] [address], [place], [address], 08/27/2023 11:02:06 08/27/19 24 08/27/2023 CBC granulcytes % 63.2 % 30.0-7 0.0 Not Available [facility] [address] [address], [place], [address], 08/27/2023 11:02:06 08/27/19 24 08/27/2023 CBC monocytes % 8.2 % 2.0-10 .0 Not Available [facility] [address] [address], [place], [address], 08/27/2023 11:02:06 08/27/19 24 08/27/2023 CBC granulcytes# 3.5 x10 Not Emily ilable [facility] [address] [address], [place], [address], 08/27/2023 11:02:06 08/27/19 24 08/27/2023 CBC lymphocytes # 1.5 x10 Not Available [facility] [address] [address], [place], [address], 08/27/2023 11:02:06 08/27/19 24 08/27/2023 CBC monocytes # 0.5 x10 Not Avai lable [facility] [address] [facility], [place], [address], 08/27/2023 11:02:06 08/27/19 24 08/27/2023 CMP (MALE ) glucose 98.0 mg/dL 60.0-9 9.0 Not Available [facility] [address] [facility], [place], [address], 08/27/2023 11:26:41 08/27/19 24 08/27/2023 CMP (MALE ) BUN (blood urea nitrogen) 16.0 mg/dL 10.0-2 6.0 Not Available [facility] [address] [place] [facility], [place], [address], 08/27/2023 11:26:41 08/27/19 24 08/27/2023 CMP (MALE ) creatinine (serum) 1.0 mg/dL 0.4-1. 5 Not Available [facility] [address] [facility], [place], [address], 08/27/2023 11:26:41 08/27/19 24 08/27/2023 CMP (MALE ) BUN/creatini ne ratio 16.84 ratio Not Available [facility] [address] [facility] [address], [place], [address], 08/27/2023 11:26:41 08/27/19 24 08/27/2023 CMP (MALE ) eGFR calculated 105.[address] [facility] [address] [facility], [place], [address], 08/27/2023 11:26:41 08/27/19 24 08/27/2023 CMP (MALE ) total protein 7.5 g/dL 6.0-8. 5 Not Available [facility] [address] [facility], [place], [address], 08/27/2023 11:26:41 08/27/19 24 08/27/2023 CMP (MALE ) total bilirubin 0.9 mg/dL 0.2-1. 3 Not Available [facility] [address] [facility] [address], [place], [address], 08/27/2023 11:26:41 08/27/19 24 08/27/2023 CMP (MALE ) albumin 4.9 g/dL 3.5-5. 5 Not Available [facility] [address] [facility] [address], [place], [address], 08/27/2023 11:26:41 08/27/19 24 08/27/2023 CMP (MALE ) globulin 2.6 calc Not Available [facility] [address] [address], [place], [address], 08/27/2023 11:26:41 08/27/19 24 08/27/2023 CMP (MALE ) AST (SGOT) 26.0 U/L 0.0-46 .0 Not Available [facility] [address] [facility] [address], [place], [address], 08/27/2023 11:26:41 08/27/19 24 08/27/2023 CMP (MALE ) altv (SGPT) 26.0 U/L 13.0-6 9.0 normal Not Available [facility] [address] [facility] [address], [place], [address], 08/27/2023 11:26:41 08/27/19 24 08/27/2023 CMP (MALE ) A/G ratio 1.9 ratio Not Available [facility] [address] [facility] [address], [place], [address], 08/27/2023 11:26:41 08/27/19 24 08/27/2023 CMP (MALE ) ALP phos 38.0 U/L 30.0-1 40.0 normal Not Available [facility] [address] [facility] [address], [place], [address], 08/27/2023 11:26:41 08/27/19 24 08/27/2023 CMP (MALE ) calcium 10.0 mg/dL 8.4-10 .5 Not Available [facility] [address] [facility] [address], [place], [address], 08/27/2023 11:26:41 08/27/19 24 08/27/2023 CMP (MALE ) sodium 141.0 mmol/ L 136.0- 145.0 Not Available [facility] [address] [facility] [address], [place], [address], 08/27/2023 11:26:41 08/27/19 24 08/27/2023 CMP (MALE ) potassium 4.4 mmol/ L 3.5-5. 1 Not Available [facility] [address] [facility] [address], [place], [address], 08/27/2023 11:26:41 08/27/19 24 08/27/2023 CMP (MALE ) chloride 107.0 mmol/ L 98.0-1 10.0 normal Not Available [facility] [address] [facility] [address], [place], [address], 08/27/2023 11:26:41 08/27/19 24 08/27/2023 CMP (MALE ) C02 29.0 mmol/ L 22.0-3 1.0 Not Available [facility] [address] [facility] [address], [place], [address], 08/27/2023 11:26:41 08/27/19 24 08/27/2023 CMP (MALE ) anion gap 5.0 calc Not Available [facility] [address] [facility] [address], [place], [address], 08/27/2023 11:26:41 08/27/19 24 08/27/2023 CMP (MALE ) osmolality 292.2 calc Not Available [facility] [address] [address], [place], [address], 08/27/2023 11:26:41 08/27/19 24 08/27/2023 TSH, serum or plasm a TSH 2.44 uIU/m L 0.49-3 .82 Not Available [facility] ([facility]) [address] [place], [address], 08/27/2023 10:23:57 Result Notes None recorded. Problems Name Problem SNOMED Code Status Onset Date Resolution Date Notes Provider Name and Address Organization Details Recorded Time Tonsille ctomy Completed 201803/16/2019 Tonsille ctomy - Status is Inactive ; 08/2008; 03/16/20 19 2:50PM by Jocelyn Nair CMT, Ronnie on/Adden dum; Promoted ; acuity set as *; Not Available [facility] 3 03:08:03 Adenoide ctomy planned [id number] Completed 201803/16/2019 Adenoide ctomy - Status is Inactive ; 08/2008; 03/16/20 19 2:50PM by Jocelyn Nair CMT, Ronnie on/[place] dum; Promoted ; acuity set as *; Not Available [facility] 3 03:08:03 Anxiety disorder 274518150 Active 2023 JOCELYN taylor [facility] 4 01:33:45 Depressi ve disorder 83549000 Active 2023 JOCELYN taylor [facility] 4 01:34:00 Irritabl e bowel syndrome 88452641 Active 2023 JOCELYN taylor [facility] 4 01:34:25 Blood pressure above referenc e range 75901245 Active 2023 JOCELYN taylor [facility] 4 01:34:42 Acute psychosi s 66812514236 100 Active 2023 JOCELYN taylor [facility] 4 12:14:54 Homicida l thoughts 086059712 Active 2023 JOCELYN taylor [facility] 4 12:15:05 Paranoid disorder 357398408 Active 2023 JOCELYN taylor [facility] 4 10:38:49 Hallucin ations 1286472 Active 2023 Hearing voices. JOCELYN taylor [facility] 4 10:39:08 Suicidal behavior 058822597 Active 2023 JOCELYN taylor [facility] 4 10:39:42 Hyperlip idemia 42489626 Active 2024 JOCELYN taylor [facility] 5 17:47:00 Problem Notes None recorded. Procedures Surgical History Date Name Laterality Status Provider Name and Address Organization Details Recorded Time 06/10/20 23 Laceration Repair completed Camilo Young MD [address] [place] [address], [address], [facility] 06/13/2023 11:00:11 03/16/20 19 plain X-ray of chest completed JOCELYN NAIR [facility] 12/27/2023 01:36:16 Tonsillectomy completed JOCELYN NAIR [facility] 12/27/2023 01:35:10 Adenoid Surgery completed JOCELYN KOREY [facility] 12/27/2023 01:35:24 Imaging Results None recorded. Procedure Notes None recorded. Medical Equipment None Reported. Allergies No known drug allergies Medications Name Sig Start Date Stop Date Status Note LastModified by Organization Details LastModified Time benztropi ne 0.5 mg tablet TAKE 1 TABLET BY MOUTH TWICE DAILY NEEDED FOR EPS active Not Available Not Available No t Available divalproe x 250 mg tablet,de layed release TAKE 1 TABLET BY MOUTH EVERY DAY at 7pm for 7 days THEN STOP active Not Available Not Available No t Available divalproe x 500 mg tablet,de layed release TAKE 1 TABLET BY MOUTH TWICE DAILY EVERY MORNING and 7pm active Not Available Not Available No t Available cyprohept adine 4 mg tablet TAKE 1 TABLET BY MOUTH EVERY MORNING active Not Available Not Available No t Available propranol ol 10 mg tablet TAKE 1 TABLET BY MOUTH TWICE DAILY active Not Available Not Available No t Available trazodone 100 mg tablet TAKE 1 TABLET BY MOUTH AT BEDTIME active Not Available Not Available No t Available lithium carbonate 300 mg capsule TAKE ONE CAPSULE BY MOUTH IN THE MORNING & TAKE TWO CAPSULES AT BEDTIME active Not Available Not Available No t Available buspirone 10 mg tablet TAKE 2 TABLETS BY MOUTH TWICE DAILY EVERY MORNING and EVERY EVENING active Not Available Not Available No t Available divalproe x 125 mg tablet,de layed release TAKE 1 TABLET BY MOUTH EVERY DAY at 7pm THE STOP active Not Available Not Available No t Available benztropi ne 1 mg tablet TAKE ONE-HALF TO 1 TABLET BY MOUTH TWICE DAILY active Not Available Not Available No t Available hydroxyzi ne HCl 25 mg tablet TAKE 1 TABLET BY MOUTH THREE TIMES DAILY NEEDED active Not Available Not Available No t Available lithium carbonate 300 mg tablet TAKE 1 TABLET BY MOUTH EVERY MORNING and TWO tabs AT BEDTIME DIRECTED active Not Available Not Available No t Available sertralin e 50 mg tablet TAKE 1 TABLET BY MOUTH EVERY DAY 12/27 completed Not Available Not Available Not Available escitalop tessa 10 mg tablet TAKE 1 TABLET BY MOUTH EVERY DAY 06/27 completed Not Available Not Available Not Available escitalop tessa 20 mg tablet TAKE ONE TABLET BY MOUTH DAILY for 30 DAYS 06/27 completed Not Available Not Available Not Available aripipraz ole 10 mg tablet TAKE 1 TABLET BY MOUTH AT BEDTIME FOR depressi on 06/27 completed Not Available Not Available Not Available atomoxeti ne 40 mg capsule take 1 capsule BY MOUTH EVERY DAY active Not Available Not Available No t Available aripipraz ole 5 mg tablet TAKE 1 TABLET BY MOUTH EVERY DAY NEEDED FOR breakthr ough symptoms active Not Available Not Available No t Available rosuvasta tin 20 mg tablet TAKE 1 TABLET BY MOUTH EVERY DAY AT BEDTIME FOR choleste rol active Not Available Not Available No t Available bupropion HCl XL 150 mg 24 hr tablet, extended release TAKE ONE TABLET BY MOUTH IN THE MORNING active Not Available Not Available No t Available quetiapin e 50 mg tablet TAKE 1 TABLET BY MOUTH AT BEDTIME active Not Available Not Available No t Available Abilify Maintena 300 mg intramusc ular suspensio n,extende d release Inject 1 mL every 4 weeks by intramus cular route for 1 day. 2023 active pt brought injectio n with him.pres cribed by JOSÉ MIGUEL Wilburn Not Available Not Available Not Available Abilify Maintena 400 mg suspensio n,extende d rel. intramusc ular syringe inject 400mg INTRAMUS CULARLY EVERY 28 DAYS active Not Available Not Available No t Available Abilify Maintena 300 mg suspensio n,extende d rel. intramusc ular syringe INJECT 300MG INTRAMUS CULARLY EVERY 28 DAYS active Not Available Not Available No t Available Vraylar 1.5 mg capsule take 1 capsule BY MOUTH EVERY DAY active Not Available Not Available No t Available Vitals Date Recorded Body height Body mass index (BMI) Body weight Oxygen saturation Heart rate Respiratory rate Systolic And Diastolic Provider Name and Address Organization Details Last Updated DateTime 4 187.96 cm 32.5 kg/m2 005377. 87 g 99 % 72 /min 20 /min 132/80 mm[Hg] [facility] 4 10:13:47 Date Recorded Body height Body mass index (BMI) Body weight Oxygen saturation Heart rate Respiratory rate Systolic And Diastolic Provider Name and Address Organization Details Last Updated DateTime 4 187.96 cm 32.5 kg/m2 842307. 87 g 99 % 80 /min 20 /min 126/74 mm[Hg] [facility] 4 10:39:12 Date Recorded Body height Body mass index (BMI) Body weight Body temperature Heart rate Oxygen saturation Systolic And Diastolic Provider Name and Address Organization Details Last Updated DateTime 4 187.96 cm 35.7 kg/m2 569234. 68 g 98.4 [degF] 74 /min 98 % 132/96 mm[Hg] KOREY LOPEZ [facility] 4 10:40:06 Date Recorded Body height Body mass index (BMI) Body weight Oxygen saturation Heart rate Respiratory rate Systolic And Diastolic Provider Name and Address Organization Details Last Updated DateTime 4 187.96 cm 34 kg/m2 550599. 98 g 99 % 82 /min 20 /min 132/80 mm[Hg] JOCELYN KOREY [facility] 4 11:29:13 Social History None recorded. Functional Status Question Answer Note LastModified by Organizat ion Details LastModified Time Do you use any illicit or recreational drugs? No [email or web address] Information not available 08/27/2023 What is your level of alcohol consumption? Occasional [email or web address] Information not available 08/27/2023 Are you currently employed? Yes Information not available 12/27/2023 Are you able to care for yourself independently? Yes [email or web address] Information not available 08/27/2023 Mental Status None recorded. Family History Relationship Description Onset Age of this Age Resolved Age Notes LastModified by Organization Details LastModified Time Mother Type 2 diabetes mellitus [email or web address] Not available 12/26 01:36:58 Mother Hyperlipidem ia [email or web address] Not available 12/26 01:37:18 Father Father accide nt [email or web address] Not available 12/27/2023 01:37:38 Medical History Condition Response Anxiety Disorder Y Depression Y Immunizations Vaccine Type Date Status Note Provider Nam e and Address Organization Details Recorded Time IPV 6 completed NANCY MAYA, [facility] [address] [place], [address], [facility] 08/27/2023 10:35:07 IPV 1 completed NANCY MAYA, [facility] [address] [place], [address], [facility] 08/27/2023 10:35:07 IPV 2 completed NANCY MAYA, [address], [address], [facility] 08/27/2023 10:35:07 IPV 1 completed NANCY MAYA, [address], [address], [facility] 08/27/2023 10:35:07 MMR 6 completed NANCY MAYA, [address], [address], [facility] 08/27/2023 10:35:07 MMR 2 completed NANCY MAYA, [address], [address], [facility] 08/27/2023 10:35:07 COVID-19, mRNA, LNP-S, PF, 100 mcg/0.5mL dose or 50 mcg/0.25mL dose 1 completed NANCY MAYA, [address], [address], [facility] 08/27/2023 10:35:07 Tdap 4 completed NANCY MAYA, [address], [address], [facility] 08/27/2023 10:35:07 varicella 3 completed NANCY MAYA, [address], [address], [facility] 08/27/2023 10:35:07 HPV, quadrivalent 4 completed NANCY MAYA, [facility] [address] [place] [address], [address], [facility] 08/27/2023 10:35:07 Hep B, adolescent or pediatric 2 completed NANCY ZULMA, [address], [address], [facility] 08/27/2023 10:35:07 Hep B, adolescent/high risk infant 1 completed NANCY MAYA, [address], [address], [facility] 08/27/2023 10:35:07 Hep B, adolescent/high risk infant 1 completed NANCY MAYA, [address], [address], [facility] 08/27/2023 10:35:07 Hep A, ped/adol, 2 dose 4 completed NANCY MAYA, [address], [address], [facility] 08/27/2023 10:35:07 Hib (HbOC) 2 completed NANCY MAYA, [address], [address], [facility] 08/27/2023 10:35:07 Hib (PRP-T) 2 completed NANCY MAYA, [address], [address], [facility] 08/27/2023 10:35:07 Hib (PRP-T) 1 completed NANCY MAYA, [facility] [address] [place], [address], [facility] 08/27/2023 10:35:07 Hib (PRP-T) 1 completed NANCY MAYA, [facility] [address] [place] [address], [address], [facility] 08/27/2023 10:35:07 meningococcal MCV4P 4 completed NANCY MAYA, [facility] [address] [place] [address], [address], [facility] 08/27/2023 10:35:07 DTaP 2 completed NANCY ZULMA, [address], [address], [facility] 08/27/2023 10:35:07 DTaP 6 completed NANCY MAYA, [facility] [address] [place], [address], [facility] 08/27/2023 10:35:08 DTaP 1 completed NANCYRobbi BRADYZULMA, [address], [address], [facility] 08/27/2023 10:35:08 DTaP 2 completed NANCY MAYA, [facility] [address] [place] [address], [address], [facility] 08/27/2023 10:35:08 DTaP 1 completed NANCY MAYA, [facility] [address] [place] [address], [address], [facility] 08/27/2023 10:35:08 Tdap 3 completed Camilo Young MD [address] [place] [address], [address], [facility], Manpreet 06/13/2023 10:57:44 Past Encounters Encounter ID Performer Location Encounter Start Date Encounter Closed Date Diagnosis/Indication Diagnosis SNOMED-CT Code Diagnosis ICD10 Code Diagnosis IMO Codes Diagnosis Note [id number] Camilo Young MD [facility] ([facility]) [address] [place] [phone] 06/10/2023 09:19:25 06/15/2023 11:42:19 Laceration of left thumb [id number] S61.012A Patient has not had Tdap years but this was given. Wound approximat ed and protected with Dermabond. [id number] NANCY MAYA [facility] ([facility]) [address] [place] [phone] 08/27/2023 09:57:55 08/27/2023 10:38:53 Adult health examination [id number] Z00.00 Mixed anxi ety and depressive disorder [id number] F41.8 [id number] [facility] ([facility]) [address] [place] [phone] 09/23/2023 10:10:55 09/23/2023 11:06:00 Mixed anxiety and depressive disorder [id number] F41.8 [id number] [facility] ([facility]) [address] [place] [address] [phone] 12/28/2023 10:33:51 12/28/2023 11:15:04 Depressive disorder [id number] F32.9 Adult atte ntion deficit hyperactivity disorder [id number] F90.9 [id number] [facility] ([facility]) [address] [place] [address] [phone] 06/21/2024 11:34:38 06/21/2024 12:19:09 Altered thought processes [id number] R41.89 [id number] JOSÉ MIGUEL CARABALLO [facility] ([facility]) [address] [place] [phone] 06/27/2024 11:17:26 06/27/2024 12:22:29 Paranoid disorder [id number] F22 Paranoia has improved. GENE sight testing today. Health Concerns Section Related Observation LastModified by Organization Detai ls LastModified Time None Recorded Concern Status LastModified by Organization Details LastModified Time None Recorded Advance Directives Directive None Recorded Payers Insurance Date Sequence Insurance Name Policy Number Policy Fofana Covered Member ID Fofana Member ID Guarantor Name 09/20/2023 1 [employer] (PPO) [id number] [facility] [id number] Brodie E Land 07/25/2024 1 [employer] (PPO) [id number] [place] [id number] Brodie E Land 07/25/2024 1 [place] [id number] 1 Brodie E Land [id number] Brodie E Land Notes Date Note Type Note Provider Name and Address Organization Details Recorded Time 4 text/html Anxiety/DepressionReporte d by PatientHPIFor severity, patient reportsmood worseandinterference with sleep. For associated symptoms, patient reportsanxiety,depression ,insomnia,sleep disturbances, andfatiguebut reportsno significant weight gainandno significant weight loss. Generalized Anxiety DisorderReported by PatientHPIFor onset/timing, patient reports1 years. For severity, patient reportsmoderate. For context, patient reportsdepression.ROS as noted in the HPI JOSÉ MIGUEL CARABALLO [address] [place] [address], [phone], [facility], [place]reet 08/27/2023 11:03:02 4 text/html Generalized Anxiety DisorderReported by PatientHPIFor associated symptoms, patient reportssleep disturbances. For onset/timing, patient reports___ months. For severity, patient reportsmoderate. For context, patient reportsdepression. JOSÉ MIGUEL CARABALLO [address] [place], [phone], [facility] 09/23/2023 11:13:56 4 text/html Anxiety/DepressionReporte d by PatientHPIFor context, patient reportsrelationship stress. For associated symptoms, patient reportshigh irritability,anxiety,depr ession,sleep disturbances,fatigue, andunable to concentrate. For severity, patient reportssymptoms improved. For modifying factors, patient reportsmedications as directed. Generalized Anxiety DisorderReported by PatientHPIFor associated symptoms, patient reportsdifficulty concentrating,difficulty controlling worry,excess anxiety,fatigue,high irritability, andsleep disturbances. For onset/timing, patient reports___ years. For severity, patient reportsmoderate. For context, patient reportsdepression.ROS as noted in the [facility] NANCY MAYA, [facility] [address] [place], [phone], [facility] 12/28/2023 11:05:18 4 text/html Anxiety/DepressionReporte d by PatientHPIFor context, patient reportsrelationship stress. For associated symptoms, patient reportshigh irritability,anxiety,depr ession,sleep disturbances,fatigue, andunable to concentrate. For severity, patient reportssymptoms improved. For modifying factors, patient reportsmedications as directed. Generalized Anxiety DisorderReported by PatientIFor associated symptoms, patient reportsdifficulty concentrating,difficulty controlling worry,excess anxiety,fatigue,high irritability, andsleep disturbances. For onset/timing, patient reports___ years. For severity, patient reportsmoderate. For context, patient reportsdepression.ROS as noted in the [facility] NANCY MAYA, [facility] [address] [place] [address], [phone], [facility] 06/27/2024 12:22:14
[2025-07-07 19:23] LABS: Hematocrit 51.0 % (37-53); Hemoglobin 16.70 g/dL (11.27-16.99); Mean Corpuscular HGB Conc 32.7 g/dL (30-55); Mean Corpuscular Hemoglobin 27.0 pg (27-33); Mean Corpuscular Volume 82.4 fl (82-101); Nucleated Red Blood Cells % 0 %; Platelet Count 271 10^3/cmm (157-399); Red Blood Count 6.19 10^6/uL (3.85-5.65); White Blood Count 7.03 10^3/uL (3.29-11.43)
--- NOTE | 2025-07-07 19:29 | W.ED.PSYCHS ---
HPI - Psych General: Chief Complaint: Psychiatric Symptoms Stated Complaint: MHE Time Seen by Provider: 07/07/25 19:06 History of Present Illness: 25-year-old presents to the emergency room is a history of bipolar family is concerned he may be manic. He admits to having difficulty with managing by a frequently will overspend. He states family's been saying he is not sleeping well. He relates he does keep very odd hours does not go to bed at same time every night. He also reports that he had been talking fast although he denies this. He admits to using oxycodone and hydrocodone about a week ago but has not been regularly using that. For the past for other reasons of failure he might be concerned to bring him to the emergency room he states that he is having some difficulties with a close friend of his and he thinks a friend is but telling the family that he is having trouble. He was hospitalized for manic episode of his bipolar several years ago for a week and then later transferred to [place]. He is still seen at [facility] although has not been seen recently. He is currently on 50 of Seroquel at at bedtime and venlafaxine 37-1/2 in the morning. He states he is a little bit hit and miss with taking his venlafaxine regularly denies any suicidal homicidal ideation. His mother and grandmother brought him to the emergency room this evening. Related Data Previous Rx's ?Medication ?Instructions ?Recorded benztropine 0.5 mg tablet 0.5 mg PO BID PRN EPS #60 tabs 07/28/24 prednisone 20 mg tablet 40 mg (2 x 20 mg) PO DAILY 5 days 11/18/24 #10 tabs quetiapine 50 mg tablet (Seroquel) 50 mg PO BEDTIME #90 tabs 01/08/25 venlafaxine 37.5 mg 37.5 mg PO .morning #90 caps 01/08/25 capsule,extended release 24 hr (Effexor XR) Allergies Allergy/AdvReac Type Severity Reaction Status Date / Time prazosin Allergy Mild hives Verified 07/07/25 19:04 Review of Systems Const: Denies: fever(s) or chills Card: Denies: chest pain Resp: Denies: dyspnea GI: Denies: abdominal pain : Denies: dysuria, urinary frequency or urinary urgency Musc: Denies: neck pain or back pain Skin/Breast: Denies: rash PFSH ED PFSH: Medical History (Updated 07/15/25 @ 00:00 by EDVIN Henry) Obesity (BMI 30.0-34.9) Hyperlipidemia Bipolar I disorder, moderate, current or most recent episode depressed, with psychotic features Nicotine dependence due to vaping tobacco product Severe cannabis dependence in early remission last use May 2024 Generalized anxiety disorder Psychiatric care Social History Smoking and tobacco/nicotine status: current every day tobacco/nicotine user Physical Exam Const: COMMON NORMALS: no acute distress GENERAL APPEARANCE: cooperative and comfortable ORIENTATION/CONSCIOUSNESS: Yes awake, Yes oriented to person, Yes oriented to place and Yes oriented to time HENMT: COMMON NORMALS: normocephalic, atraumatic and hearing grossly normal bilaterally HEAD & SCALP: normocephalic and atraumatic Resp: COMMON NORMALS: normal respiratory effort, No retractions, No use of accessory muscles and clear to auscultation bilaterally AUSCULTATION: clear to auscultation bilaterally Cardio: COMMON NORMALS: regular rate, regular rhythm and No murmurs present (Cardio) RATE: regular rate RHYTHM: regular rhythm GI: COMMON NORMALS: Soft to palpation and No hepatosplenomegaly present AUSCULTATION: Yes normoactive bowel sounds PALPATION: Yes Soft to palpation, No Tenderness to palpation present (GI), No Guarding due to palpation present (GI) and Yes No hepatosplenomegaly present Extremity: COMMON NORMALS: normal to inspection, capillary refill normal, no clubbing, cyanosis or edema, no calf tenderness and no pedal edema Neuro: SENSORIUM/ORIENTATION: Yes oriented to person, Yes oriented to place and Yes oriented to time Skin: COMMON NORMALS: no rashes or lesions noted GENERAL SKIN EXAM: no rashes or lesions noted Course Vital Signs: Vital signs: Vital Signs Temperature 98.2 F 07/07/25 18:59 Pulse Rate 120 H 07/07/25 20:28 Respiratory Rate 18 07/07/25 20:28 Blood Pressure 168/85 07/07/25 20:28 Pulse Oximetry 98 07/07/25 20:28 Oxygen Delivery Me thod Room Air 07/07/25 18:59 MDM - Psych Medical Decision Making 25-year-old male presents emergency room alone. Later in the visit his grandfather came in the room and we got some history from him as well. He has no homicidal or suicidal ideation. Does admit to using some recreational drugs recently as a result he had some auditory hallucinations. He is not having any at this time. He has continued to take his medications. At this point he does not require acute inpatient care. Will discharge him recommend that he follow-up at crisis stabilization he has an appointment upcoming with his psychiatry team when she can review medications with them. We did not make any changes to medicines at this time. Did recommend that he abstain from recreational drugs. Labs reviewed as found in the chart. He is positive for marijuana but otherwise unremarkable CBC and chemistry panel did not show any clinically significant abnormalities. His blood alcohol was undetectable. Medical Records I reviewed the patient's medical records. Lab Data I reviewed the patient's lab results. 07/07/25 19:18 07/07/25 19:18 Laboratory Results WBC 7.03 10^3/uL (3.29-11.43) 07/07/25 19:18 RBC 6.19 10^6/uL (3.85-5.65) H 07/07/25 19:18 Hgb 16.70 g/dL (11.27-16.99) 07/07/25 19:18 Hct 51.0 % (37-53) 07/07/25 19:18 MCV 82.4 fl (82-101) 07/07/25 19:18 MCH 27.0 pg (27-33) 07/07/25 19:18 MCHC 32.7 g/dL (30-55) 07/07/25 19:18 RDW 12.6 % (12.1-15.1) 07/07/25 19:18 Plt Count 271 10^3/cmm (157-399) 07/07/25 19:18 MPV 10.7 fL (7.4-10.4) H 07/07/25 19:18 Neut % (Auto) 71.4 % 07/07/25 19:18 Lymph % (Auto) 17.5 % 07/07/25 19:18 [place] % (Auto) 10.0 % 07/07/25 19:18 Eos % (Auto) 0.4 % 07/07/25 19:18 Baso % (Auto) 0.4 % 07/07/25 19:18 Neut # (Auto) 5.02 10^3/uL (1.8-7.7) 07/07/25 19:18 Lymph # (Auto) 1.2 10^3/uL (0.8-4.8) 07/07/25 19:18 [place] # (Auto) 0.7 10^3/uL (0.2-0.9) 07/07/25 19:18 Eos # (Auto) 0.0 10^3/uL (0.0-0.8) 07/07/25 19:18 Baso # (Auto) 0.0 10^3/uL (0.0-0.1) 07/07/25 19:18 Nucleated RBC % (auto) 0 % 07/07/25 19:18 Nucleated RBCs # 0.0 /100WBC 07/07/25 19:18 Sodium 137 mmol/L (136-145) 07/07/25 19:18 Potassium 3.8 mmol/L (3.5-5.1) 07/07/25 19:18 Chloride 101 mmol/L (98-107) 07/07/25 19:18 Carbon Dioxide 20 mmol/L (22-29) L 07/07/25 19:18 Anion Gap 19.8 (5-19) H 07/07/25 19:18 BUN 11 mg/dL (6-20) 07/07/25 19:18 Creatinine 1.1 mg/dL (0.7-1.2) 07/07/25 19:18 GFR Calculation 82.2 mL/min (90-130) L 07/07/25 19:18 Glucose 101 mg/dL (65-115) 07/07/25 19:18 Calculated Osmolality 284 mOsm/kg (285-295) L 07/07/25 19:18 Calcium 9.4 mg/dL (8.5-10.5) 07/07/25 19:18 Total Bilirubin 0.7 mg/dL (0.15-1.2) 07/07/25 19:18 AST 39 U/L (0-40) 07/07/25 19:18 ALT 45 U/L (0-41) H 07/07/25 19:18 Alkaline Phosphatase 40 U/L (40-130) 07/07/25 19:18 Total Protein 7.0 g/dL (6.6-8.7) 07/07/25 19:18 Albumin 4.6 g/dL (3.5-5.2) 07/07/25 19:18 Globulin 2.4 g/dL (1.3-4.6) 07/07/25 19:18 Urine Color Dark yellow (Yellow) A 07/07/25 20:46 Urine Appearance Clear (CLEAR) 07/07/25 20:46 Urine pH 6.0 (5-7) 07/07/25 20:46 Ur Specific [place] 1.030 (1.005-1.030) 07/07/25 20:46 Urine Protein 1+ (Negative) A 07/07/25 20:46 Urine Glucose (UA) Negative (Normal) 07/07/25 20:46 Urine Ketones 1+ (Negative) H 07/07/25 20:46 Urine Blood Negative (Negative) 07/07/25 20:46 Urine Nitrate Negative (Negative) 07/07/25 20:46 Urine Bilirubin Negative (Negative) 07/07/25 20:46 Urine Urobilinogen 1.0 mg/dL (Negative) 07/07/25 20:46 Ur Leukocyte Esterase 1+ (Negative) A 07/07/25 20:46 Urine RBC 0-2 /hpf (0-2) 07/07/25 20:46 Urine WBC 11-20 /hpf (0-5) H 07/07/25 20:46 Ur Squamous Epith Cells 0-5 /hpf (0-5) 07/07/25 20:46 Amorphous Sediment Not Reportable 07/07/25 20:46 Urine Bacteria 1+ /hpf (NONE) H 07/07/25 20:46 Hyaline Casts 0.81 /lpf 07/07/25 20:46 Salicylates < 0.3 mg/dL (3-10) L 07/07/25 19:18 Urine Opiates Screen Negative ng/mL (Negative) 07/07/25 20:46 Acetaminophen < 5.0 ug/mL (10-30) L 07/07/25 19:18 Ur Barbiturates Screen Negative ng/mL (Negative) 07/07/25 20:46 Ur Phencyclidine Scrn Negative ng/mL (Negative) 07/07/25 20:46 Ur Amphetamines Screen Negative ng/mL (Negative) 07/07/25 20:46 U Benzodiazepines Scrn Negative ng/mL (Negative) 07/07/25 20:46 Urine Cocaine Screen Negative ng/mL (Negative) 07/07/25 20:46 U Marijuana (THC) Screen Positive ng/mL (Negative) H 07/07/25 20:46 Ethyl Alcohol < 10 mg/dL (0-10) 07/07/25 19:18 No radiology studies performed this visit Discharge Plan Discharge Patient Disposition: Home Clinical Impression: Bipolar disorder Condition: Stable Prescriptions: No Action prednisone 20 mg tablet 40 mg PO DAILY 5 Days Qty: 10 0RF quetiapine [Seroquel] 50 mg tablet 50 mg PO BEDTIME Qty: 90 2RF Rx Instructions: Take one tablet at bedtime venlafaxine [Effexor XR] 37.5 mg capsule,extended release 24hr 37.5 mg PO .morning Qty: 90 2RF Rx Instructions: Take one capsule every morning benztropine 0.5 mg tablet 0.5 mg PO BID PRN (Reason: EPS) Qty: 60 3RF Rx Instructions: May take one tablet twice per day as needed for EPS Discharge Orders: Discharge ED (Routine); Ordered 07/07/25 Ordered By: Jnoo Pineda Referrals: Hayden Walls MD [Primary Care Provider, Family Practice] Discharge Diet: Usual diet Discharge Activity: Resume usual activity Patient Instructions: Opioid Safety, Pain Management, Patient Portal & Az Instructions Activity Restrictions/Additional Instructions: Thank you for choosing [facility] for your healthcare needs today. It is very important that you follow up as instructed or that you return to the Emergency Department should you have concerns or if your condition changes or worsens in any way. Emergency department visits are focused on emergent conditions, in some cases you may require further evaluation on an outpatient basis. You were seen in the emergency room for screening. There is no emergent psychological condition at this time. Will discharge home do recommend you pursue close follow-up with your psychiatry team as scheduled early next week. There was slight abnormalities in your urine however since you are not having any symptoms currently will await the culture results. (Please note that included in your discharge packet is information concerning opioid safety and pain management. This information is given to all patients were discharged from the ER regardless of their discharge diagnosis or the medicines they usually take or are prescribed.) Print Language: Bermudian Coding Level of Care Code ED Mining Captain for Nikolai Stuart
[2025-07-07 19:56] LABS: Acetaminophen < 5.0 ug/mL (10-30); Alanine Aminotransferase 45 U/L (0-41); Albumin Level 4.6 g/dL (3.5-5.2); Alcohol Level < 10 mg/dL (0-10); Anion Gap 19.8 (5-19); Aspartate Amino Transferase 39 U/L (0-40); Blood Urea Nitrogen 11 mg/dL (6-20); Calcium 9.4 mg/dL (8.5-10.5); Carbon Dioxide 20 mmol/L (22-29); Chloride 101 mmol/L (98-107); Creatinine Clr Calc Pharmacy 154.7768; Globulin 2.4 g/dL (1.3-4.6); Glucose 101 mg/dL (65-115); Osmolality Calculated 284 mOsm/kg (285-295); Potassium 3.8 mmol/L (3.5-5.1); Salicylate < 0.3 mg/dL (3-10); Sodium 137 mmol/L (136-145); Total Protein 7.0 g/dL (6.6-8.7)
[2025-07-07 20:28] VITALS: BP 168/85; PULSE 120; RESP 18; O2SAT 98
[2025-07-07 20:36] LABS: Alkaline Phosphatase 40 U/L (40-130)
[2025-07-07 20:52] LABS: Glucose Urine UA Negative (Normal); Nitrate Urine Negative (Negative); Specific Gravity, Urine 1.030 (1.005-1.030)
[2025-07-07 20:57] LABS: Add Urine Microscopic? YES
[2025-07-07 21:01] LABS: PCP Screen Urine Negative (Negative)
== END 2025-07-07 21:37 | disposition home or self-care (01) ==
PROVIDERS: Emergency Provider Family Medicine; PCP Family Medicine
DX: F31.9 Bipolar disorder, unspecified (principal); Z72.0 Tobacco use; E78.5 Hyperlipidemia, unspecified
CPT/HCPCS: 36415; 80053; 80306; 80307; 81001; 85025; 99283